=== PATIENT | male | born 1995 | race African-American/Black ===

== ENCOUNTER 2020-08-21 11:39 | Emergency (ER) | payer OTHER ==
[~2020-08-21] VITALS: Ht 170.2 cm; Wt 71.4 kg
--- NOTE | 2020-08-21 12:28 | REP ---
INDICATION: fall, headache. COMPARISON: None. TECHNIQUE: CT BRAIN PERFORMED IN THE AXIAL PLANE. CORONAL RECONSTRUCTION IMAGES ARE PERFORMED. FINDINGS: THE VENTRICLES ARE NORMAL IN SIZE AND POSITION. THERE IS NO MIDLINE SHIFT OR MASS EFFECT. ARREOLA-WHITE DIFFERENTIATION IS WELL MAINTAINED. THERE IS NO ACUTE INTRACRANIAL HEMORRHAGE OR EXTRA-AXIAL FLUID COLLECTION. BONE WINDOW EXAMINATION IS UNREMARKABLE. VISUALIZED MASTOID AIR CELLS AND PARANASAL SINUSES ARE CLEAR. IMPRESSION: NEGATIVE NONCONTRAST CT BRAIN. <Electronically signed by Carlos Singh > 08/21/20 [id number]
--- NOTE | 2020-08-21 12:31 | REP ---
INDICATION: fall, headache. COMPARISON: None. TECHNIQUE: Axial soft tissue and bone windows reviewed with coronal and sagittal bone window reconstructions provided. FINDINGS: Sagittal images show vertebral body heights and disc spaces maintained. There is no compression deformity or malalignment. There is no prevertebral soft tissue swelling. The dens along with the anterior arch and lateral masses of C1 align normally on all projections. There is no central canal or foraminal stenosis. The spinous processes, lamina, pedicles, facets and transverse processes were all intact. Skull base bone windows and mastoid aeration unremarkable. Limited visualization of the upper thoracic vertebral levels and 1st few ribs along with lung apices all unremarkable. IMPRESSION: Normal noncontrast CT cervical spine. No compression fracture, malalignment, spinal or foraminal stenosis nor other acute finding. <Electronically signed by Carlos Singh > 08/21/20 [id number]
[2020-08-21] MEDS ORDERED: KETOROLAC 30 MG/ML 1ML VIAL IV ONE (13:15)
[2020-08-21] MEDS ORDERED: CYCLOBENZAPRINE 10MG TABLET PO ONE (13:15)
--- OUTSIDE RECORDS SUMMARY | 2020-08-21 13:56 | CCD ---
Author Author [facility] Organization [facility] Address Unknown Phone Unavailable Care Team Providers Care [employer] Order Filler Name Role Phone Ely ROWELL Unavailable Unavailable NO, PCP Unavailable Unavailable Re-disclosure Warning The records that you are about to access may contain information from federally-assisted alcohol or drug abuse programs. If such information is present, then the following federally mandated warning applies: This information has been disclosed to you from records protected by federal confidentiality rules (42 CFR part 2). The federal rules prohibit you from making any further disclosure of this information unless further disclosure is expressly permitted by the written consent of the person to whom it pertains or as otherwise permitted by 42 CFR part 2. A general authorization for the release of medical or other information is NOT sufficient for this purpose. The Federal rules restrict any use of the information to criminally investigate or prosecute any alcohol or drug abuse patient.The records that you are about to access may contain highly sensitive health information, the redisclosure of which is protected by Article 27-F of the [facility] Public Health law. If you continue you may have access to information: Regarding HIV / AIDS; Provided by facilities licensed or operated by the [facility] Office of Mental Health; or Provided by the [facility] Office for People With Developmental Disabilities. If such information is present, then the following [facility] mandated warning applies: This information has been disclosed to you from confidential records which are protected by state law. State law prohibits you from making any further disclosure of this information without the specific written consent of the person to whom it pertains, or as otherwise permitted by law. Any unauthorized further disclosure in violation of state law may result in a fine or penitentiary sentence or both. A general authorization for the release of medical or other information is NOT sufficient authorization for further disc losure. Encounters Encounter Providers Location Date Indications Data Source(s ) Emergency Attender: DERRICK ROWELLConsultant: PCP NO 08/19/2020 12:30:00 PM EST - 08/19/2020 03:14:00 PM EST [facility] Patient discharged. Insurance Providers Payer name Policy type / Coverage type Policy ID Covered democrat ID Covered democrat's relationship to diop Policy Diop Plan Information [facility] ACTIVE DUTY [id number] SP [id number] [facility] HUMANA - O/P [id number] 18 [id number] Results ID Date Data Source [id number] 08/20/2020 01:02:00 PM [facility] [address] [place] [address] PHONE: [phone] FAX: [phone] Name .................. : EDGAR Richard Acct Number.................. : [id number] ROOM. ................. : TR-07 Number ................... : [id number] Stay type ............. : E/R Discharge Date......... ... : 08/19/20 Admit Date .... ..... : 08/19/20 Admit Phys .................... : LELIA Date of ....... : 1995 Family Phys ................... : NO PCP Phone .................. : [phone] Age ................................ : 24 Film# .................. .:[id number] Sex ................................. : M Unsigned transcriptions are preliminary reports and do not represent a medical or legal document CT THORAX W/CONTRAST [id number] COMPLETE:08/19/20 19:12 STEFANO 4606 Reason(s): Trauma/Injury CT OF THE CHEST WITH CONTRAST: INDICATION: Trauma. FINDINGS: The neck base is clear. The lungs are clear. The heart is normal in size. No lymphadenopathy. No vascular injury. There is no acute osseous abnormality. The visualized upper abdomen demonstrates no acute abnormality. IMPRESSION: No acute traumatic injury of the chest. While performing the above CT examination, radiation dose reduction was accomplished utilizing automated exposure control, adjusting of the mA and kV based on the patient's body size and/or the use of imperative reconstructive techniques. CT dose: 393.7 mGycm Contrast agent in mL: 75 Isovue 370 Method of administration: Intravenous Electronically Reviewed and Signed By Ismael Ignacoi M.D. , 08/20/20 13:02, [facility] Page [address] [place] [address] PHONE: [phone] FAX: [phone] Name .................. : EDGAR Richard Acct Number.................. : [id number] ROOM. ................. : TR-07 Number ................... : [id number] Stay type ............. : E/R Discharge Date......... ... : 08/19/20 Admit Date ......... : 08/19/20 Admit Phys ............ ........ : LELIA Date of ....... : 1995 Family Phys ................... : NO PCP Phone .................. : [phone] Age ................................ : 24 Film# .................. .:[id number] Sex ................................. : M Unsigned transcriptions are preliminary reports and do not represent a medical or legal document CT THORAX W/CONTRAST [id number] COMPLETE:08/19/20 19:12 STEFANO 4606 Reason(s): Trauma/Injury Transcribe Initials: REBECCA , Transcribe Date: 08/19/20 20:50, Dictation Date: Copy for: [facility] via fax Copy for: EMERGENCY DEPT via modem Copy for: 710 MED REC DISCHARGED Page 2 of 2 Name Value Range Interpretation Code Description Data Samia rce(s) Supporting Document(s) ID Date Data Source [id number] 08/20/2020 12:30:00 [place] [address] PHONE: [phone] FAX: [phone] Name .................. : HERNÁNDEZ BRIAN Hilary Acct Number.................. : [id number] ROOM. ................. : TR-07 MR Number ................... : [id number] Stay type ............. : E/R Discharge Date......... ... : Admit Date ......... : 08/02 02/19 Admit Phys .................... : LELIA Date of ....... : 1995 Family Phys ................... : NO PCP Phone .................. : [phone] Age ................................ : 24 Film# .................. .:[id number] Sex ................................. : M Unsigned transcriptions are preliminary reports and do not represent a medical or legal document CT CERV SPINE W/O CONTRAS [id number] COMPLETE:08/19/20 12:39 4608 Reason(s): Trauma/Injury CT SCAN OF THE CERVICAL SPINE WITHOUT CONTRAST, 08/19/20: INDICATION: Trauma/injury. FINDINGS: Scans were obtained from C1 through C7. The discs appeared normal. No bony abnormalities, spinal stenosis, abnormal paravertebral process or significant degenerative changes are seen. There is a 4 mm bone island identified in the left occiput. Examination is otherwise unremarkable. IMPRESSION: Negative cervical spine CT scan. While performing the above CT examination, radiation dose reduction was accomplished utilizing automated exposure control, adjusting of the mA and kV based on the patient's body size and/or the use of imperative reconstructive techniques. CT dose 1087.8 mGycm. Examination dictated by KAYLEEN Tobias. Examination was reviewed with Juni Dallas MD, radiologist at the time of this dictation. Electronically Reviewed and Signed By Juni Dallas MD , 08/20/20 12:30, [facility] Transcribe Initials: [facility], Transcribe Date: 08/19/20 14:20, Dictation Date: Copy for: [facility] via fax Page 1 of 2 [facility] [address] [place] [address] PHONE: [phone] FAX: [phone] Name .................. : EDGAR Richard Acct Number.................. : [id number] ROOM. ................. : TR- MR Number ................... : [id number] Stay type ............. : E/R Discharge Date......... ... : Admit Date ......... : 08/19/20 Admit Phys .................... : LELIA Date of ....... : 1995 Family Phys ................... : NO PCP Phone .................. : [phone] Age ................................ : 24 Film# .................. .:[id number] Sex ................................. : M Unsigned transcriptions are preliminary reports and do not represent a medical or legal document CT CERV SPINE W/O CONTRAS [id number] COMPLETE:08/19/20 12:39 4608 Reason(s): Trauma/Injury Copy for: EMERGENCY DEPT via modem Copy for: 710 MED REC DISCHARGED Page 2 of 2 Name Value Range Interpretation Code Description Data Samia rce(s) Supporting Document(s) ID Date Data Source [id number] 08/20/2020 12:29:00 PM EST [place] [address] [place] [address] PHONE: [phone] FAX: [phone] Name .................. : EDGAR Richard Acct Number.................. : [id number] ROOM. ................. : [facility] MR Number ................... : [id number] Stay type ............. : E/R Discharge Date......... ... : Admit Date ......... : 0 08/19/20 [facility] .................... [facility] Date of ....... : 1995 Family Phys ................... : NO PCP Phone .................. : [phone] Age ................................ : 24 Film# .................. .:[id number] Sex ................................. : M Unsigned transcriptions are preliminary reports and do not represent a medical or legal document CT HEAD W/O CONTRAST [id number] COMPLETE:08/19/20 12:39 8497 Reason(s): Head Injury CT SCAN OF THE HEAD WITHOUT CONTRAST, 08/19/20: INDICATION: Head injury. FINDINGS: The ventricular system is normal. No evidence for parenchymal loss is noted. No evidence for masses or mass effects are identified. No evidence for subdural, epidural, or subarachnoid hemorrhage is noted. The bones and soft tissues also appear normal. IMPRESSION: Unremarkable CT scan of the head without intravenous contrast. While performing the above CT examination, radiation dose reduction was accomplished utilizing automated exposure control, adjusting of the mA and kV based on the patient's body size and/or the use of imperative reconstructive techniques. CT dose 894.8 mGycm. Examination dictated by KAYLEEN Tobias. Examination was reviewed with Juni Dallas MD, radiologist at the time of this dictation. Electronically Reviewed and Signed By Juni Dallas MD , 08/20/20 12:29, [facility] Transcribe Initials: SSR, Transcribe Date: 08/19/20 14:19, Dictation Date: Page 1 of 2 [place] [address] PHONE: [phone] FAX: [phone] Name .................. : EDGAR TORRES Hilary Acct Number.................. : [id number] ROOM. ................. : TR-07 MR Number ................... : [id number] Stay type ............. : E/R Discharge Date......... ... : Admit Date ......... : 08/19/20 Admit Phys ..... ............... : [facility] Date of ....... : 1995 Family Phys ................... : NO PCP Phone .................. : [phone] Age ................................ : 24 Film# .................. .:[id number] Sex ................................. : M Unsigned transcriptions are preliminary reports and do not represent a medical or legal document CT HEAD W/O CONTRAST [id number] COMPLETE:08/19/20 12:39 4607 Reason(s): Head Injury Copy for: [facility] via fax Copy for: EMERGENCY DEPT via modem Copy for: 710 MED REC DISCHARGED Page 2 of 2 Name Value Range Interpretation Code Description Data Samia rce(s) Supporting Document(s) ID Date Data Source [id number] 08/20/2020 12:28:00 [place] [address] PHONE: [phone] FAX: [phone] Name .................. : EDGAR Richard Acct Number.................. : [id number] ROOM. ................. : TR-07 Number ................... : [id number] Stay type ............. : E/R Discharge Date......... ... : Admit Date ......... : 08/19/20 Admit Phys .................... : [facility] Date of ....... : 1995 Family Phys ................... : NO PCP Phone .................. : [phone] Age ................................ : 24 Film# .................. .:[id number] Sex ................................. : M Unsigned transcriptions are preliminary reports and do not represent a medical or legal document KNEE COMPLETE-4 OR MORE VWS R [id number] COMPLETE:08/19/20 12:39 4609 Reason(s): Trauma/Injury RIGHT KNEE, 08/19/20: INDICATION: Trauma/injury. FINDINGS: There is normal alignment and position of the bones of the right knee. No evidence for joint effusion is noted. No fractures are identified. IMPRESSION: Negative right knee x-ray. Examination dictated by KAYLEEN Tobias. Examination was reviewed with Juni Dallas MD, radiologist at the time of this dictation. Electronically Reviewed and Signed By Juni Dallas MD , 08/20/20 12:28, [facility] Transcribe Initials: SSR, Transcribe Date: 08/19/20 14:17, Dictation Date: Copy for: [facility] via fax Copy for: EMERGENCY DEPT via modem Copy for: 710 MED REC DISCHARGED Page 1 of 1 Name Value Range Interpretation Code Description Data Samia rce(s) Supporting Document(s) ID Date Data Source [id number] 08/19/2020 12:30:00 PM EST [facility] 1 OrderSheet [facility] Emergency Department [address] [place] [address] Phone #: ext- [phone] 08/19/2020 12:20 Patient: BRIAN HERNÁNDEZ Sex: M : 1995 Age: 24yWEIGHT:72.5 kg (S) HEIGHT:67 inches (S) BMI:25.1ALLERGIES: No Known Drug AllergyCHIEF COMPLAINT: 5-6 feet, trippedDIAGNOSIS: Fall, Strain of neck muscle, Backache, Contusion, Injury of headLAB ORDERSOrder Description Priority Entered Acknowledged InitialedCBC w Diff STAT 12:39 08/19/2020 13:11 Garfield Hernandez R.N.;CMP STAT 12:39 08/19/2020 13:11 Garfield Hernandez R.N.;PT/PTT STAT 12:39 08/19/2020 13:11 Garfield Hernandez R.N.;Urine Drug Screen STAT 12:39 08/19/2020 13:11 Garfield Hernandez R.N.;Urinalysis (Clean STAT 12:39 08/19/2020 13:11 David,Catch) Garfield BEYER;ETOH STAT 12:39 08/19/2020 13:11 Garfield Hernandez R.N.;DIAGNOSTIC STUDY ORDERSOrder Description Priority Entered Acknowledged InitialedCT Chest W/ Cont STAT 12:39 08/19/2020 13:10 David,(Oxygen?(No)) Garfield Ham R.N.(IV?(Yes)) PA; Reason for Study: Trauma/InjuryCT Head W/O Cont STAT 12:39 08/19/2020 13:10 David,(Oxygen?(No)) Garfield BEYER; Reason for Study: Head InjuryCT Spine Cervical STAT 12:39 08/19/2020 13:10 David,W/O Cont Garfield Ham R.N. 2 OrderSheet [facility] Emergency Department [address] [place] [address] Phone #: ext- [phone] 08/19/2020 12:20 Patient: BRIAN HERNÁNDEZ Sex: M : 1995 Age: 24y(Oxygen?(No)) PA; Reason for Study: Trauma/InjuryKnee Complete STAT 12:39 08/19/2020 13:10 David,Right Garfield Ham R.N.(Oxygen?(No)) PA; Reason for Study: Trauma/InjuryMEDICATION/IV/DRIP/FLUID ORDERSOrder Description Priority Entered Acknowledged InitialedOfirmev IV 1000 mg 12:39 08/19/2020 13:29 David,(NOW x1, Infuse Garfield Ham R.N.over 15 minutes) PA;GENERAL ORDERSOrder Description Priority Entered Acknowledged InitialedSaline Lock 12:39 08/19/2020 13:10 Garfield Hernandez R.N. PA;[Electronically signed by Kim Coates R.N. (15:14 08/19/2020)][Electronically signed by Garfield Desouza (21:06 08/19/2020)][E lectronically locked by Kim Coates R.N. (15:14 08/19/2020)] Name Value Range Interpretation Code Description Data Samia rce(s) Supporting Document(s) ID Date Data Source [id number] 08/19/2020 12:30:00 PM EST [facility] 1 Medication Reconciliation Report [facility] Emergency Department [address] [place] [address] Phone #: ext- [phone] 08/19/2020 12:20 Patient: BRIAN HERNÁNDEZ Sex: M : 1995 Age: 24yWeight: 72.5 kgHeight/Length: 67 in.BMI: 25.1ALLERGIES: No Known Drug AllergyThe patient's Home Medications are listed below:NONE.The source(s) of the original Home Medication information:patientThe following Medications were given to the patient in the Emergency Department:ofirmev IVPB bolus 0, then 1 GRAM, administered: 13:29 08/19/2020The following Medications were prescribed to the patient:None. Name Value Range Interpretation Code Description Data Samia rce(s) Supporting Document(s) ID Date Data Source [id number] 08/19/2020 12:30:00 PM [facility] 1 Medication Administration Record [facility] Emergency Department [address] [place] [address] Phone #: ext- [phone] 08/19/2020 12:20 Patient: BRINA HERNÁNDEZ Sex: M : 1995 Age: 24yWeight: 72.5 kgHeight/Length: 67 inBMI: 25.1ALLERGIES: No Known Drug Allergy Date/Time Medication Administered Medication OrderedStart ofirmev * Ofirmev IV 1000 mg (NOW x1,13:29 08/19/2020 Dose: 1 GRAM * IVPB Infuse over 15 minutes)Jitendra Hernandez R.N.----Stop14:09 08/19/2020Jitendra soni R.N. Name Value Range Interpretation Code Description Data Samia rce(s) Supporting Document(s) ID Date Data Source [id number] 08/19/2020 12:30:00 PM [facility] 1 General Instructions [facility] Emergency Department [address] [place] [address] Phone #: ext- [phone] 08/19/2020 12:20 Patient: BRIAN HERNÁNDEZ Sex: M : 1995 Age: 24yMinor closed head injury. Concussion. No loss of consciousness. (Mild).Acute cervical strain.Acute traumatic thoracic back pain associated with muscle strain.Contusion to the right knee.Fall on the same level by tripping.INSTRUCTIONSDo not work today.Warnings: Further evaluation is ne cessary. It is very important to follow up with a healthcare provider.GENERAL WARNINGS: Return or contact your physician immediately if your condition worsens orchanges unexpectedly, if not improving as expected, or if other problems arise. SPECIFICALLY, return ifthere is no improvement in the pain.Your Current Medications: .No home medication.Follow-up:Follow up with your doctor tomorrow even if well. Reason for referral: evaluation and treatment. Summaryof care provided to patient.Understanding of the discharge instructions verbalized by patient. ADDITIONAL INFORMATIONMechanical FallYou have had a fall today. It appears that the cause is what is called mechanical. That means thatyou slipped, tripped, or lost your balance. If your fall had been because of fainting or a seizure, youmight need other tests.It is normal to feel sore and tight in your muscles and back the next day, and not just the muscles youinjured at first. Remember, all the parts of your body are connected, so while initially one area hurts,the next day another may hurt. Also, when you injure yourself, it causes inflammation, which thencauses the muscles to tighten up and hurt more. After the initial worsening, it should graduallyimprove over the next few days. Do report more severe pain. 2 General Instructions [facility] Emergency Department [address] [place] [address] Phone #: ext- [phone] 08/19/2020 12:20 Patient: BRIAN HERNÁNDEZ Sex: M : 1995 Age: 24yEven without a definite head injury, you can still get a concussion from your head suddenly jerkingforward, backward, or sideways when falling. Concussions and even bleeding can still happen,especially if you have had a recent injury or take blood thinner medicine. It is not unusual to have amild headache and feel tired and even nauseous or dizzy.Home care Rest today and go back to your normal activities when you are feeling back to normal. If you were injured during the fall, follow the advice from your healthcare provider regarding care of your injury. At first, do not try to stretch out the sore spots. If there is a strain, stretching may make it worse. Massage may help relax the muscles without stretching them. You can use an ice pack or cold compress on and off to the sore spots 10 to 20 minutes at a time, as often as you feel comfortable. This may help reduce the inflammation, swelling and pain. If you have any scrapes or abrasions, they usually heal within 10 days. It is important to keep the abrasions clean while they initially start to heal. However, an infection may happen even with proper care, so watch for early signs of infection (such as warmth, redness, or swelling).Medicines Talk to your healthcare provider before taking new medicines, especially if you have other medical problems or are taking other medicines. If you need anything for pain, you can take acetaminophen or ibuprofen, unless you were given a different pain medicine to use. Talk with your healthcare provider before using these medicines if you have chronic liver or kidney disease, or ever had a stomach ulcer or gastrointestinal bleeding, or are taking blood thinner medicines. Be careful if you are given prescription pain medicines, narcotic s, or medicine for muscle spasm. They can make you sleepy and dizzy, and can affect your coordination, reflexes, and judgment. Do not drive or do work where you can injure yourself when taking them.Fall prevention Fix, remove, or replace anything that caused your fall. Make your home safe by keeping walkways clear of objects you may trip over. Use nonslip pads under rugs. Don't use small area rugs or throw rugs. Don't walk in poorly lit areas. 3 General Instructions [facility] Emergency Department [address] [place] [address] Phone #: ext- [phone] 08/19/2020 12:20 Patient: BRIAN HERNÁNDEZ Sex: M : 1995 Age: 24y Don't stand on chairs or wobbly ladders. Use caution when reaching overhead or looking upward. This position can cause a loss of balance. Be sure your shoes fit properly, have nonslip bottoms and are in good condition. Be cautious when going up and down curbs, and walking on uneven sidewalks. If your balance is poor, consider using a cane or walker. Stay as active as you can. Balance, flexibility, strength, and endurance all come from exercise. They all play a role in preventing falls. If you have pets, know where they are before you stand up or walk so you don't trip over them. Limit alcohol intake. Alcohol can cause balance problems and increase the risk of falls. Use night lights. Have your eyes tested to be sure you are seeing well, even if you already wear glasses.Follow-upFollow up with your healthcare provider, or as advised. If X-rays or CT scans were done, you will benotified if there is a change in the reading, especially if it affects treatment.Call [phone] if any of these happen: Trouble breathing Confused or difficulty arousing Fainting or loss of consciousness Rapid or very slow heart rate Seizure Difficulty with speech or vision, weakness of an arm or leg Difficulty walking or talking, loss of balance, numbness or weakness in one side of your body, or facial droopWhen to seek medical advice 4 General Instructions [facility] Emergency Department [address] [place] [address] Phone #: ywa- [phone] 08/19/2020 12:20 Patient: BRIAN HERNÁNDEZ Sex: M : 1995 Age: 24yCall your healthcare provider right away if any of these happen: Repeated mechanical falls, or unexplained falls Dizziness Severe headache Blood in vomit, stools (black or red color) 8974-3304 [employer]. [address] [place] [address], [place] [address]. All rights reserved. This information is not intended as asubstitute for professional [facility] care. Always follow your healthcare professional's instructions.Neck Sprain or StrainA sudden force that causes turning or bending of the neck can cause sprain or strain. An examplewould be the force from a car accident. This can stretch or tear muscles called a strain. It can alsostretch or tear ligaments called a sprain. Either of these can cause neck pain. Sometimes neck painoccurs after a simple awkward movement. In either case, muscle spasm is commonly present andcontributes to the pain.Unless you had a forceful physical injury (for example, a car accident or fall), X-rays are often notordered for the initial evaluation of neck pain. If pain continues and does not respond to medicaltreatment, X-rays and other tests may be done later.Home care You may feel more soreness and spasm the first few days after the injury. Rest until symptoms start to improve. When lying down, use a comfortable pillow or a rolled towel that supports the head and keeps the spine in a neutral p osition. The position of the head should not be tilted forward or backward. Apply an ice pack over the injured area for 15 to 20 minutes every 3 to 6 hours. Do this for the first 24 to 48 hours. You can make an ice pack by filling a plastic bag that seals at the top with ice cubes and then wrapping it with a thin towel. After 48 hours, apply heat (warm shower or warm bath) for 15 to 20 minutes several times a day, or alternate ice and heat. You may use qmhu-lam-vfhvkdu pain medicine to control pain, unless another pain medicine was prescribed. If you have chronic liver or kidney disease or ever had a stomach ulcer or gastrointestinal bleeding, talk with your healthcare provider before using these medicines. If a soft cervical collar was prescribed, only ear it for periods of increased pain. It should not be worn for more than 3 hours a day, or for longer than 1 to 2 weeks. 5 General Instructions [facility] Emergency Department [address] [place] [address] Phone #: ext- [phone] 08/19/2020 12:20 Patient: BRIAN HERNÁNDEZ Sex: M : 1995 Age: 24yFollow-up careFollow up with your healthcare provider, or as directed. Physical therapy may be needed.Sometimes fractures don't show up on the first X-ray. Bruises and sprains can sometimes hurt asmuch as a fracture. These injuries can take time to heal completely. If your symptoms don't improveor they get worse, talk with your healthcare provider. You may need a repeat X-ray or other tests. IfX-rays were taken, you will be told of any new findings that may affect your care.Call [phone] if you have: Neck swelling, difficulty or painful swallowing Trouble breathing Chest painWhen to seek medical adviceCall your healthcare provider right away if any of these occur: Pain becomes worse or spreads into your arms or legs Weakness or numbness in one or both arms or legs [id number] [employer] [place] [address]. All rights reserved. This information is not intended as asubstitute for professional medical care. Always follow your healthcare professional's instructions.Back Pain (Acute or Chronic) 6 General Instructions [facility] Emergency Department [address] [place] [address] Phone #: ext- [phone] 08/19/2020 12:20 Patient: BRIAN HERNÁNDEZ Sex: M : 1995 Age: 24yBack pain is one of the most common problems. The good news is that most people feel better in 1 to2 weeks, and most of the rest in 1 to 2 months. Most people can remain active.People who have pain describe it differently--not everyone is the same. The pain can be sharp, stabbing, shooting, aching, cramping or burning. Movement, standing, bending, lifting, sitting, or walking may worsen pain. It can be limited to one spot or area, or it can be more generalized. It can spread upwards, to the front, or go down your arms or legs (sciatica). It can cause muscle spasm.Most of the time, mechanical problems with the muscles or spine cause the pain. Mechanicalproblems are usually caused by an injury to the muscles or ligaments. Illness can cause back pain,but it's usually not caused by a serious illness. Mechanical problems include: 7 General Instructions [facility] Emergency Department [address] [place] [address] Phone #: ext- [phone] 08/19/2020 12:20 Patient: BRIAN HERNÁNDEZ Sex: M : 1995 Age: 24y Physical activity such as sports, exercise, work, or normal activity Overexertion, lifting, pushing, pulling incorrectly or too aggressively Sudden twisting, bending, or stretching from an accident, or accidental movement Poor posture Stretching or moving wrong, without noticing pain at the time Poor coordination, lack of regular exercise (check with your doctor about this) Spinal disc disease or arthritis StressPain can also be related to , or illness like appendicitis, bladder or kidney infections, pelvicinfections, and many other things.Acute back pain usually gets better in 1 to 2 weeks. Back pain related to disk disease, arthritis in thespinal joints, or narrowing of the spinal canal (spinal stenosis) can become chronic and last formonths or years.Unless you had a physical injury such as a car accident or fall, X-rays are usually not needed for thefirst assessment of back pain. If pain continues and does not respond to medical treatment, you mayneed X-rays and other tests.Home careTry this home care advice: When in bed, try to find a position of comfort. A firm mattress is best. Try lying flat on your back with pillows under your knees. You can also try lying on your side with your knees bent up toward your chest and a pillow between your knees. At first, don't try to stretch out the sore spots. If there is a strain, it's not like the good soreness you get after exercising without an injury. In this case, stretching may make it worse. Don't sit for long periods, as in a long car ride or during other travel. This puts more stress on the lower back than standing or walking. During the first 24 to 72 hours after an acute injury or flare up of chronic back pain, apply an ice pack to the painful area for 20 minutes and then remove it for 20 minutes. Do this over a period of 60 to 90 minutes or several times a day. This will reduce swelling and pain. Wrap the ice pack in a thin towel or plastic to protect your skin. You can start with ice, then switch to heat. Heat (hot shower, hot bath, or heating pad) reduces pain and works well for muscle spasms. Heat can be applied to the painful area for 20 8 General Instructions [facility] Emergency Department [address] [place] [address] Phone #: ext- [phone] 08/19/2020 12:20 Patient: BRIAN HERNÁNDEZ Sex: M : 1995 Age: 24y minutes then remove it for 20 minutes. Do this over a period of 60 to 90 minutes or several times a day. Don't sleep on a heating pad. It can lead to skin monson or tissue damage. You can alternate ice and h eat therapy. Talk with your doctor about the best treatment for your back pain. Therapeutic massage can help relax the back muscles without stretching them. Be aware of safe lifting methods and don't lift anything without stretching first.MedicinesTalk to your doctor before using medicine, especially if you have other medical problems or are takingother medicines. You may use pcjh-vyr-oltdrdj medicine as directed on the bottle to control pain, unless another pain medicine was prescribed. If you have chronic conditions like diabetes, liver or kidney disease, stomach ulcers, or gastrointestinal bleeding, or are taking blood thinners, talk to your doctor before taking any medicine. Be careful if you are given a prescription medicines, narcotics, or medicine for muscle spasms. They can cause drowsiness, affect your coordination, reflexes, and judgement. Don't drive or operate heavy machinery.Follow-up careFollow up with your healthcare provider, or as advised.If X-rays were taken, you will be told of any new findings that may affect your careCall 911Call 911 if any of the following occur: Trouble breathing Confusion Very drowsy or trouble awakening Fainting or loss of consciousness Rapid or very slow heart rate Loss of bowel or bladder controlWhen to seek medical advice 9 General Instructions [facility] Emergency Department [address] [place] [address] Phone #: ext- [phone] 08/19/2020 12:20 Patient: BRIAN HERNÁNDEZ Sex: M : 1995 Age: 24yCall your healthcare provider right away if any of these occur: Pain becomes worse or spreads to your legs Weakness or numbness in one or both legs Numbness in the groin or genital area 1999- [address] [employer] [place] [address], [place] [address]. All rights reserved. This information is not intended as asubstitute for professional medical care. Always follow your healthcare professional's instruct ions.Lower Extremity BruiseYou have a bruise (contusion on a leg, knee, ankle, foot, or toe. Symptoms include pain, swelling,and skin discoloration. No bones are broken. This injury may take from a few days to a few weeks toheal. During that time, the bruise may change from reddish in color, to purple-blue, to green-yellow,to yellow-brown.Home care Unless another medicine was prescribed, you can take acetaminophen, ibuprofen, or naproxen to control pain. Talk with your healthcare provider before using these medicines if you have chronic liver or kidney disease or ever had a stomach ulcer or digestive bleeding. Elevate the injured area to reduce pain and swelling. As much as possible, sit or lie down with the injured area raised about the level of your heart. This is especially important during the first 48 hours. Ice the injured area to help reduce pain and swelling. Wrap an ice pack or ice cubes in a plastic bag in a thin towel. Apply to the bruised area for 20 minutes every 1 to 2 hours the first day. Continue this 3 to 4 times a day until the pain and swelling goes away. If crutches have been advised, don't bear full weight on the injured leg until you can do so without pain. You may return to sports when you are able to put full weight and impact on the injured leg without pain.Follow upFollow up with your healthcare provider, or as advised. Call if you are not improving within the next 1to 2 weeks.When to seek medical adviceCall your healthcare provider right away if any of these occur: Increased pain or swelling 10 General Instructions [facility] Emergency Department [address] [place] [address] Phone #: ext- [phone] 08/19/2020 12:20 Patient: BRIAN HERNÁNDEZ Sex: M : 1995 Age: 24y Foot or toes become cold, blue, numb or tingly Signs of infection: Warmth, drainage, or increased redness or pain around the injury Inability to move the injured area, or any joints below the injured area Frequent bruising for unknown reasons [id number] [employer]. [address] [place] [address]. All rights res erved. This information is not intended as asubstitute for professional medical care. Always follow your healthcare professional's instructions.ConcussionA concussion is a type of brain injury. It can be caused by a direct hit or blow to the head, neck, face,or body. The force of the blow makes the head and brain shake quickly back and forth. In some casesyou may lose consciousness. Depending on the severity of the blow, it will take from a few hours upto a few days to get better. Sometimes symptoms may last a few months or longer. This is calledpost-concussion syndrome.At first, you may have a headache, nausea, vomiting, or dizziness. You may also have problemsconcentrating or remembering things. This is normal.Symptoms should get better as the hours and days go by. Symptoms that get worse could be a signof a more serious brain injury. This might be a bruise or bleeding in the brain. That's why it'simportant to watch for the warning signs listed below.School-age children are more at risk for symp toms that don't go away after a concussion. Theyshould be watched very closely. 11 General Instructions [facility] Emergency Department [address] [place] [address] Phone #: ext- [phone] 08/19/2020 12:20 Patient: BRIAN HERNÁNDEZ Sex: M : 1995 Age: 24yHome careIf your injury is mild and there are no serious signs or symptoms, your healthcare provider mayrecommend that you be watched at home. If there is evidence that the injury is more serious, you willbe watched in the hospital. Follow these tips to help care for yourself at home: After a concussion, your healthcare provider may recommend that a family member or friend watched you for 12 to 24 hours. They may be told to wake you every few hours during sleep to check for the signs below. If your face or scalp swells, apply an ice pack for 20 minutes every 1 to 2 hours. Do this until the swelling starts to go down. To make an ice pack, put ice cubes in a plastic bag that seals at the top. Wrap the bag in a clean, thin towel or cloth. Never put ice or an ice pack directly on the skin. You may use acetaminophen to control pain, unless another pain medicine was prescribed. Don't use aspirin or ibuprofen after a head injury. If you have long-lasting (chronic) liver or kidney disease, talk with your healthcare provider before using these medicines. Also talk with your provider if you ever had a stomach ulcer or gastrointestinal bleeding. For the next 24 hours: o Don't drink alcohol or take sedatives or medicines that make you sleepy. o Don't drive or operate machinery. o Don't do anything strenuous. Don't lift or strain. Don't return right away to sports or to any activity where you could hit your head. Wait until all symptoms are gone and you have been cleared by your healthcare provider. Having a second head injury before you fully recover from the first one can lead to serious brain injury. After a few days, it's OK to go back to your normal daily activities. But don't do anything that could cause your head to be hit again.Follow-up careFollow up with your healthcare provider in 1 week, or as directed.A radiologist will review any X-rays or CT scans that were taken. You will be told of any new findingsthat may affect your care.When to seek medical adviceCall your healthcare provider right away if any of these occur: Headache or dizziness that won't go away 12 General Instructions [facility] Emergency Department [address] [place] [address] Phone #: ext- [phone] 08/19/2020 12:20 Patient: BRIAN HERNÁNDEZ Sex: M : 1995 Age: 24y Redness, warmth, or pus from the swollen areaCall [phone] 911 or get medical care right away if any of these occur: Repeated vomiting (it's common to vomit once after a head injury) Headache or dizz iness that is severe or gets worse Loss of consciousness Unusual drowsiness, or unable to wake up as usual Weakness or decreased ability to walk or move any limb Confusion, agitation, or change in behavior or speech, or memory loss Blurred vision Convulsion (seizure) Swelling on the scalp or face that gets worse Changes in pupil size (the black part of the eye) Fluid draining from or bleeding from the nose or ears [employer]. [address] [place] [address]. All rights reserved. This information is not intended as asubstitute for professional medical care. Always follow your healthcare professional's instructions. You have been given the following additional information: Mechanical Fall Neck Sprain or Strain Back Pain (Acute or Chronic) Contusion, Lower Extremity Concussion Do not work today.(Electronically signed by KAYLEEN Cardozo 08/19/2020 21:06) 13 General Instructions [facility] Emergency Department [address] [place] [address] Phone #: ext- [phone] 08/19/2020 1 2:20 Patient: BRIAN HERNÁNDEZ Sex: M : 1995 Age: 24y Name Value Range Interpretation Code Description Data Samia rce(s) Supporting Document(s) ID Date Data Source [id number] 08/19/2020 12:30:00 PM EST [facility] 1 Clinical Report - Nurses [facility] Emergency Department [address] [place] [address] Phone #: [phone] 08/19/2020 12:20 Patient: BRIAN HERNÁNDEZ Sex: M : 1995 Age: 24yTRIAGEArrived by EMS. Historian: EMS. Unaccompanied.Triage time: 12:20 08/19/2020. Acuity: LEVEL 3.Chief Complaint: FALL: 4-5 feet. Lost balance; fell onto the ground and hard surface.Patient was wearing a helmet.Alert.Location of injuries: head, face and right knee. Occurred at work. Occurred late entry - 11:37008/19/2020. 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 When EMS arrived pt c/o right knee pain, headache,and had altered mental status, GCS 14 per EMS. Pt now c/o neck pain. Pt only remembers post fall.). (FS 103 per EMS).Treatment ADMISSION LIAISON:None.SEPSIS SCREEN: SIRS SCREEN NEGATIVE. SEPSIS SCREEN NEGATIVE. No suspected or confirmedsigns of infection present. (12:29 08/19/2020).KIMBERLY COMA SCORE: 14- eyes open- spontaneous (4); best verbal response- confused (4); bestmotor response- obeys commands (6). (Pt oriented to self only). --12:30 08/19/20 Eneida Walsh R.N.12:20 08/19/20. BP: 125/71. HR: 85. RR: 23. O2 saturation: 100%. Temp: 97.8 F. Pain level now 810.--12:30 08/19/20 Eneida Walsh R.N.Weight: 72.5 kg stated. Height/Length: 67 inches Per Patient. BMI: 25.1. --12:20 08/19/20 Eneida Walsh R.N.MedicationsNone. --12:23 08/19/20 Eneida Walsh R.N.AllergiesNo Known Drug Allergy. --12:23 08/19/20 Eneida Walsh R.N.PROBLEMS:G6Pd Deficiency. --12:24 08/19/20 Eneida Walsh R.N.Medication/allergy information source: the patient. --12:30 08/19/20 Eneida Walsh R.N. 2 Clinical Report - Nurses [facility] Emergency Department [address] [place] [address] Phone #: ext- [phone] 08/19/2020 12:20 [id number] Sex: [facility] : 1995 Age: 24y ADDITIONAL SURGERIES: Kidney surgery. --12:24 08/19/20 Eneida Walsh R.N. History PAST MEDICAL HX: Tetanus status: up-to-date. Immunizations: up-to-date and (Pt received 1 st dose of COVID vaccie). SOCIAL HX: Never smoker. No alcohol use or drug use. He was offered HIV testing but declined. Patient education was provided. He was offered hepatitis C testing but declined. Patient education was provided. ( COVID screen negative). He has not traveled outside the [place] Infectious disease exposure: No infectious disease exposure. The patient was not exposed to Coronavirus. Mask placed on patient. Patient is not a known carrier of tuberculosis, hepatitis, HIV, MRSA or VRE. Patient is not a known carrier of CRE. SELF HARM ASSESSMENT: Self harm assessment was performed. The patient answered "no" to the question(s) "Do you have thoughts of harming or killing yourself?" and "Do you have a plan for harming or killing yourself?". ABUSE ASSESSMENT: Abuse assessment. The patient had positive responses to the question(s) "Do you feel safe in your home?". Abuse denied. No suspicion of abuse. No report of abuse. NUTRITIONAL RISK ASSESSMENT: The nutritional risk assessment revealed no deficiencies. FUNCTIONAL ASSESSMENT: Functional assessment: no impairments noted. LEARNING NEEDS ASSESSMENT: The learning needs assessment revealed no barriers. FALL RISK ASSESSMENT: Fall risk assessment completed. Risk factors identified include patient impairment of cognition. Fall interventions initiated. Patient placed on stretcher. Side rails up x2. Bed in low position. Patient visible from nurses' station and identified as a fall risk. Electronic bed monitor in use. Call light in reach of patient. Instructed not to get up without assistance. Instructions given to patient including fall prevention information. Verbalizes understanding. SKIN INTEGRITY ASSESSMENT: Skin integrity risk assessment completed. No skin integrity risk identified. --12:30 08/19/20 Eneida Walsh R.N. Interventions Identification band on patient. --12:30 08/19/20 Eneida Walsh R.N.PHYSICAL BZKRZYODRD50:06 08/19/20. Ambulatory to room. Patient gowned.GENERAL / NEURO / PSYCH: Alert. Oriented X 4. Appears in no acute distress.HEENT: Head non-tender. Neck: tenderness.RESPIRATORY: Respirations not labored. Chest nontender. Breath sounds within normal limits. 3 Clinical Report - Nurses [facility] Emergency Department [address] [place] [address] Phone #: ext- [phone] 08/19/2020 12:20 Patient: BRIAN HERNÁNDEZ Sex: M : 1995 Age: 24y CVS: Right rib area: tenderness. Left rib area: tenderness. Normal heart rate and rhythm. Pulses within normal limits. Capillary refill less than 2 seconds. GI / : Abdomen soft and nontender. EXTREMITIES: Extremities exhibit normal ROM. Neuro-vascular status intact to the extremity. SKIN: Skin intact. Skin is warm and dry. --13:07 08/19/20 Jitendra Hernandez R.N.NURSING PROGRESS NOTESHard c- collar applied (In place on arrival by EMS). Patient gowned. Reassurance given. Three patientidentifiers checked. Call light placed in reach. Side rails up x 2. Bed placed in lowest position. Brakesof bed on. ( Pt placed on Monitor on BP and O2 oximeter). --12:30 08/19/20 Eneida Walsh R.N. 13:11 08/19/2020 Site #1 started prior to arrival by EMS via IV in the left antecubital space with an 18g angiocath, with aseptic technique and good blood return; one attempt. Saline lock flushed with 10 mL saline. --13:11 08/19/20 Jitendra Hernandez R.N. 13:29 08/19/2020 [facility] * IVPB 1 GRAM --13:29 08/19/20 Jitendra Hernandez R.N. 14:09 08/19/2020 [facility] IVPB Discontinued: bag #1 completed. Total amount infused: 100 mL. IV patency established. IV site checked: no pain, redness, or swelling. IV flushed thoroughly. --14:25 08/19/20 Jitendra Hernandez R.N. 15:11 08/19/2020 Site #1 removed upon discharge. Pressure dressing applied. --15:11 08/19/20 Kim Coates R.N.DISPOSITION / DISCHARGE 15:10 08/19/20. BP: 122/73. MAP: 89. HR: 78. RR: 18. O2 saturation: 100%. Temp: 97 F. Pain level now: 11/08. --15:11 08/19/20 Kim Coates R.N. Condition at departure: improved. No learning barriers present. Discharge instructions provided and reviewed with the patient. Reviewed fever care instructions. Patient verbalized understanding. Written instructions provided in Moroccan. ( use acetaminophen and motrin for pain). The patient was discharged home and unaccompanied at time of discharge. He left ambulatory and via private vehicle. Patient driving. --15:14 08/19/20 Kim Coates R.N. Departure time: 15:14 08/19/2020. --15:14 08/19/20 Kim Coates R.N.Locked/Released at 08/19/2020 15:14 by Kim Coates R.N. Name Value Range Interpretation Code Description Data Samia rce(s) Supporting Document(s) ID Date Data Source [id number] 08/19/2020 12:30:00 PM [facility] 1 Clinical Report - Physicians/Mid Levels [facility] Emergency Department [address] [place] [address] Phone #: ext- [phone] 08/19/2020 12:20 Patient: BRIAN HERNÁNDEZ Sex: M : 1995 Age: 24y Time Seen: 12:30 08/19/2020. Arrived- By ambulance. Historian- patient and EMS personnel.HISTORY OF PRESENT ILLNESS Chief Complaint: FALL: 5-6 feet. Tripped. (Fell from train car). Location of injuries- head, neck, chest and upper back. The injury occurred just prior to arrival. Fell: Occurred at work. The patient complains of moderate pain. The patient sustained a blow to the head, complains of neck pain and was dazed. No loss of consciousness or seizure.REVIEW OF SYSTEMSThe patient complains of pain on weight bearing. No numbness, dizziness, loss of vision, hearing loss orchest pain. No difficulty breathing, weakness, headache, nausea or abdominal pain. No laceration,fever, vomiting, urinary problems or depression.PAST HISTORYProblems:G6Pd Deficiency. Additional Surgeries: Kidney surgery. Medications: None. Allergies: No Known Drug Allergy.SOCIAL HISTORYNever smoker. No alcohol use or drug use.PHYSICAL EXAMVital Signs: 08/19/2020 12:20 BP: 125/71. MAP: 89. HR: 85. RR: 23. O2 saturation: 100%. Temp: 97.8 F.Have been reviewed as normal. Oxygen saturation normal.Appearance: Alert. Oriented X3. No acute distress.Head: No swelling of head. Vertex: mild tenderness of the right posterior aspect of the vertex.Eyes: Pupils equal, round and reactive to light. EOM intact.ENT: No dental injury. Pharynx normal.Neck: Decrease in ROM. Pain in the neck upon movement. Muscle spasm of the neck. Vertebral 2 Clinical Report - Physicians/Mid Levels [facility] Emergency Department [address] [place] [address] Phone #: ext- [phone] 08/19/2020 12:20 Patient: BRIAN HERNÁNDEZ Sex: M : 1995 Age: 24y tenderness. CVS: Heart sounds normal. Pulses normal. Respiratory: Breath sounds normal. Chest nontender. Abdomen: No visible injury. Soft and nontender. Bowel sounds normal. No organomegaly. No mass. Femoral pulses equal. Back: Mild tenderness in the right upper and mid and left upper and mid thoracic area. ROM normal. Skin: Skin intact. Skin warm and dry. Normal skin color. Normal skin turgor. Extremities: Pelvis stable. Right knee: mild tenderness located in the patella. Limited ROM secondary to pain. Neurovascular intact distally. No ligamentous laxity present. No joint effusion. Neuro: Mildly altered mental status: forgetful and disoriented to person, place and time. Patient slow to respond. Eyes open- spontaneous. Best verbal response- confused. Best motor response- obeys commands. (pt struggles with name, month and day but know [employer] has taken his [employer]itu and would like to keep his pants on and also adamantly reports he doesn't smoke or drink because he is [employer]). No motor deficit. No sensory deficit. Reflexes normal.LABS, X-RAYS, AND EKGCT C-Spine: No acute findings. (Bone island in the left occiput examination is otherwise unremarkable.).The study was interpreted by the radiologist and contemporaneously by me. Interpretation time: 14:.CT Head: Normal study. Head CT performed without contrast. The study was interpreted by theradiologist and contemporaneously by me. Interpretation time: 14:50 08/19/2020.Chest CT: (NAD). Chest CT performed without contrast. The study was interpreted by the radiologistand contemporaneously by me. Interpretation time: 14:51 08/19/2020.PROGRESS AND PROCEDURESCourse of Care: 15:03 Aug [address] scan and observation. (Discussed risks,benefits, options and pt is agreeable with dx and tx plan.). Patient counseled in person regarding the patient's stable condition, test results, diagnosis and need for follow-up. Patient agrees with plan of care. 15:Aug 19 2020. Disposition: Discharged home in good and improved condition (15:Aug 19 2020).CLINICAL IMPRESSION Minor closed head injury. Concussion. No loss of consciousness. (Mild). Acute cervical strain. Acute traumatic thoracic back pain associated with muscle strain. Contusion to the right knee. Fall on the same level by tripping. 3 Clinical Report - Physicians/Mid Levels [facility] Emergency Department [address] [place] [address] Phone #: [phone] 08/19/2020 12:20 Patient: BRIAN HERNÁNDEZ Sex: M : 1995 Age: 24yINSTRUCTIONS Do not work today. Warnings: Further evaluation is necessary. It is very important to follow up with a healthcare provider. GENERAL WARNINGS: Return or contact your physician immediately if your condition worsens or changes unexpectedly, if not improving as expected, or if other problems arise. SPECIFICALLY, return if there is no improvement in the pain. Your Current Medications: . No home medication. Follow-up: Follow up with your doctor tomorrow even if well. Reason for referral: evaluation and treatment. Summary of care provided to patient. Understanding of the discharge instructions verbalized by patient.(Electronically signed by KAYLEEN Cardozo 08/19/2020 21:06) Name Value Range Interpretation Code Description Data Samia e(s) Supporting Document(s) ID Date Data Source [id number] 08/19/2020 01:31:00 PM [facility] Name Value Range Interpretation Code Description Data Samia rce(s) Supporting Document(s) Prothrombin time (PT) 12.1 SECONDS 11.0 - 15.5 [facility] INR in Platelet poor plasma by Coagulation assay 0.85 0.93 - 1. 23 L [facility] aPTT in Blood by Coagulation assay 31.5 SECONDS 24.8 - 36.7 [facility] \\BLDo\\INR INTERPRETATION\\BLDx\\ Therapeutic range for Coumadin and related oral anticoagulants. - International Normalized Ratio (INR): 2.0 - 3.0 for Venous Thrombosis, Pulmonary Embolus, Tissue heart valves, Acute [place] Atrial Fibrillation, Valvular heart disease and recurrent Systemic Embolism. - International Normalized Ratio (INR): 2.5 - 3.5 for Mechanical Prosthetic valve. ID Date Data Source [id number] 08/19/2020 01:25:00 PM [facility] Name Value Range Interpretation Code Description Data Samia rce(s) Supporting Document(s) Ethanol [Moles/volume] in Blood <10.0 MG/DL [facility] ALCOHOL % 0.01 % 0.00 - 0.01 [facility] ital *FOR MEDICAL PURPOSES ONLY * ID Date Data Source [id number] 08/19/2020 01:25:00 PM [facility] Name Value Range Interpretation Code Description Data [facility](s) Supporting Document(s) COMPREHENSIVE METABOLIC PANEL [facility] COMPREHENSIVE METABOLIC PANEL Sodium [Moles/volume] in Serum or Plasma 140 mEq/L 134 - 153 [facility] Potassium [Moles/volume] in Serum or Plasma 3.8 mEq/L 3.6 - 5.0 [facility] Chloride [Moles/volume] in Serum or Plasma 103 mEq/L 98 - 107 [facility] Carbon dioxide, total [Moles/volume] in Serum or Plasma 29 MEQ/L 22 - 30 [facility] Glucose [Mass/volume] in Serum or Plasma 78 MG/DL 70 - 99 [facility] BUN 14 MG/DL 7 [facility] Creatinine [Mass/volume] in Serum or Plasma 0.9 MG/DL 0.7 - 1.5 [facility] BUN/CREAT 16 8 - [facility] Protein [Mass/volume] in Serum or Plasma 7.5 G/DL 6.3 - 8.2 [facility] Albumin [Mass/volume] in Serum or Plasma 4.7 G/DL 3.9 - 5.0 [facility] Globulin [Mass/volume] in Serum by calculation 2.8 GM/DL 2.4 - 3.2 [facility] A/G RATIO 1.7 0.8 - 2.0 [facility] al Calcium [Mass/volume] in Serum or Plasma 9.3 MG/DL 8.4 - 10.2 [facility] Bilirubin.total [Mass/volume] in Serum or Plasma 0.8 MG/DL 0.2 - 1.3 [facility] Alkaline phosphatase [Enzymatic activity/volume] in Serum or Plasma 69 U/L 38 - 126 [facility] Aspartate aminotransferase [Enzymatic activity/volume] in Serum or Plasma 19 U/L 5 - 40 [facility] Alanine aminotransferase [Enzymatic activity/volume] in Seru m or Plasma 16 U/L 7 - 56 [facility] Anion gap 3 in Serum or Plasma 8.0 mmol/L 8.0 - 16.0 [facility] AGE 24 yrs [facility] al NON-AA GFR >60 mL/min [facility] ital AFR AMER GFR >60 mL/min [facility] Male GFR In terprentation 20-49 yrs >60 mL/min Normal 50-59 yrs >56 mL/min Normal 60-69 yrs >49 mL/min Normal 70-79yrs >42 mL/min Normal 80 and above >35 mL/min Normal Female GFR Interpretation 20-39 yrs >60 mL/min Normal 40-49 yrs >58 mL/min Normal 50-59 yrs >51 mL/min Normal 60-69 yrs >45 mL/min Normal 70-79 yrs >39 mL/min Normal 80 and above >32 mL/min Normal ID Date Data Source [id number] 08/19/2020 01:11:00 PM EST [facility] Name Value Range Interpretation Code Description Data Samia rce(s) Supporting Document(s) CBC W/AUTOMATED DIFF [facility] COMPLETE BLOOD COUNT Leukocytes [#/volume] in Blood by Automated count 4.2 10^3/uL 4.2 - 1 1.0 [facility] Erythrocytes [#/volume] in Blood by Automated count 5.10 10^6/uL 4. 50 - 6.30 [facility] Hemoglobin [Mass/volume] in Blood 12.2 g/dL 14.0 - 16.0 L [facility] Hematocrit [Volume Fraction] of Blood by Automated count 39.1 % 4 1.0 - 51.0 L [facility] Erythrocyte mean corpuscular volume [Entitic volume] by Auto mated count 76.7 fL 80.0 - 94.0 L [facility] Erythrocyte mean corpuscular hemoglobin [Entitic mass] by Automated count 23.9 pg 27.0 - 34.0 L [facility] Erythrocyte mean corpuscular hemoglobin concentration [Mass/volume] by Automated count 31.2 g/dL 31.0 - 36.0 [facility] Erythrocyte distribution width [Ratio] by Automated count 13.1 % 11.5 - 14.8 [facility] Platelets [#/volume] in Blood by Automated count 243 10^3/uL 150 - 45 0 [facility] Platelet mean volume [Entitic volume] in Blood by Automated count 10.7 fL 7.4 - 10.4 H [facility] Neutrophils/100 leukocytes in Blood by Automated count 57.4 % 37. 0 - 80.0 [facility] Lymphocytes/100 leukocytes in Blood by Manual count 35.2 % 25.0 - 40.0 [facility] Monocytes/100 leukocytes in Blood by Automated count 5.0 % 3.0 - 8.0 [facility] Eosinophils/100 leukocytes in Blood by Automated count 1.7 % 0.0 - 7.0 [facility] Basophils/100 leukocytes in Blood by Automated count 0.5 % 0.0 - 2.0 [facility] %IG 0.2 % 0.0 - 0.[address] [facility] %NRBC 0.0 % 0.0 - 0.0 [facility] al Neutrophils [#/volume] in Blood by Automated count 2.40 10^3/uL 2.00 - 6.90 [facility] Lymphocytes [#/volume] in Blood by Automated count 1.47 10^3/uL 0.60 - 3.40 [facility] Monocytes [#/volume] in Blood by Automated count 0.21 10^3/uL 0.00 - 0.90 [facility] Eosinophils [#/volume] in Blood by Automated count 0.07 10^3/uL 0.00 - 0.70 [facility] Basophils [#/volume] in Blood by Automated count 0.02 10^3/uL 0.00 - 0.20 [facility] #IG 0.01 10^3/uL 0.00 - 0.10 [facility] #NRBC 0.00 10^3/uL 0.00 - 0.00 [facility] MANUAL DIFF NOT INDICATED [facility] RBC MORPH NOT INDICATED [facility] Procedure
[2020-08-21] MEDS ORDERED: METOCLOPRAMIDE INJ 10MG/2ML VIAL (J2765 PER 1) IV ONE (14:00)
[2020-08-21] MEDS ORDERED: diphenhydrAMINE 50MG/ML VIAL (J1200) IV ONE (14:00)
[2020-08-21] MEDS ORDERED: NS 1,000 ML IV ONE (14:00)
[2020-08-21] MEDS ORDERED: dexameTHASONE 4 MG/ML 1ML VIAL (J1100 PER 1MG) IV ONE (14:00)
[2020-08-21] MEDS ORDERED: KETO10TAB PO (14:10)
[2020-08-21] MEDS ORDERED: CYCL-707 PO (14:10)
[2020-08-21 14:17] VITALS: BP 114/78
== END 2020-08-21 14:30 | disposition home or self-care (01) ==
LOC: M ED 11:39
DX: S06.0X9A Concussion with loss of consciousness of unspecified duration, initial encounter (principal); Y92.9 Unspecified place or not applicable; Y93.9 Activity, unspecified; Y99.9 Unspecified external cause status
CPT/HCPCS: 36415; 70450; 72125; 80047; 96374; 99284; J1885

== ENCOUNTER 2020-11-10 12:44 | Emergency (ER) | payer OTHER ==
[~2020-11-10] VITALS: Ht 170.2 cm; Wt 65.9 kg
[~2020-11-10 12:44] MED LIST: CYCL-707 PO; KETO10TAB PO
[2020-11-10] MEDS ORDERED: DEBR6.5S4 OTIC (14:01)
[2020-11-10 14:18] VITALS: BP 113/76
== END 2020-11-10 14:19 | disposition home or self-care (01) ==
LOC: M ED 12:44
DX: H61.22 Impacted cerumen, left ear (principal); H93.12 Tinnitus, left ear

== ENCOUNTER 2020-11-25 11:28 | Emergency (ER) | payer OTHER ==
[~2020-11-25] VITALS: Ht 170.2 cm; Wt 70.5 kg
[~2020-11-25 11:28] MED LIST changes: +DEBR6.5S4 OTIC
[2020-11-25 11:29] VITALS: BP 112/63
[2020-11-25] MEDS ORDERED: KETOROLAC 60MG 2ML VIAL IM ONE (11:55)
[2020-11-25] MEDS ORDERED: METH-1165 PO (11:57)
[2020-11-25] MEDS ORDERED: NAPR-837 PO (11:57)
== END 2020-11-25 13:19 | disposition home or self-care (01) ==
LOC: M ED 11:28
DX: M54.5 Low back pain (principal); S29.012A Strain of muscle and tendon of back wall of thorax, initial encounter; X50.0XXA Overexertion from strenuous movement or load, initial encounter; Y92.9 Unspecified place or not applicable; Y93.01 Activity, walking, marching and hiking; Y99.9 Unspecified external cause status
CPT/HCPCS: 96372; 99282; J1885

== ENCOUNTER 2021-01-03 14:17 | Emergency (ER) | payer OTHER ==
[~2021-01-03] VITALS: Ht 170.2 cm; Wt 77.0 kg
[~2021-01-03 14:17] MED LIST changes: +METH-1165 PO; +NAPR-837 PO
[2021-01-03 14:19] VITALS: BP 110/69
== END 2021-01-04 01:09 | disposition left against medical advice (07) ==
LOC: M ED 14:17
DX: Z53.21 Procedure and treatment not carried out due to patient leaving prior to being seen by health care provider (principal)